=== PATIENT | male | born 1970 | race African-American/Black ===

== ENCOUNTER 2016-07-25 11:55 | Emergency (ER) | payer MEDICAID, OTHER ==
--- NOTE | 2016-07-25 12:35 | EDPHY ---
H & P Smoking Status: Current every day smoker Time Seen by Provider: 07/25/16 12:34 HPI/ROS: CHIEF COMPLAINT: A lot of people are out to get me HISTORY OF PRESENT ILLNESS: This 46-year-old man with schizoaffective disorder also has a history of substance abuse and has been off his medications for the last 2 months which have included in the past Abilify, Wellbutrin, Adderall, and Xanax. He moved [place] from [place] and has not been able low couple local [facility] facility. He tells me has been increasingly paranoid feeling that a lot of people are out to get him and he feels on guard and has been caring various weapons including a knife in a hammer to protect himself. Apparently tells me that he pled guilty today in court caring a weapon in public. REVIEW OF SYSTEMS: Eye: no change in vision ENT: no sore throat Cardiac: no chest pain or syncope Pulmonary: no cough or SOB Abdomen: no vomiting, diarrhea, abdominal pain Musculoskeletal: no back pain Skin: no rash Neuro: no headache Constitutional: no fever : no urinary symptoms A comprehensive 10 point review of systems is otherwise negative aside from elements mentioned in the history of present illness. PAST MEDICAL HISTORY: Schizoaffective disorder, hypertension, asthma. Social history: Patient admits to multi drug abuse including methamphetamine yesterday 11:00 p.m.. Tobacco smoker. Denies alcohol. General Appearance: Alert and conversant, cooperative. Distracted. Eyes: No scleral icterus. ENT, Mouth: Normal mucous membranes. Respiratory: Normal respiratory effort, breath sounds equal, lungs are clear to auscultation. Cardiovascular: Regular rate and rhythm. Gastrointestinal: Abdomen is soft and non tender. Neurological: Alert and oriented x3. Normally conversant. Face symmetric, normal movement and sensation in all extremities. Skin: Warm and dry, no rashes. Musculoskeletal: No peripheral edema and no joint swelling. Psychiatric: Patient is mildly agitated. He appears distracted. He has rambling speech and seems to be unable to sit still. Emergency Department course/MDM: Screening labs are sent to include alcohol level and drug screen. Ativan 1 mg orally for increasing agitation. Mental health evaluation for increasing paranoia with a history of schizoaffective disorder. Signed out to Dr. Jung at 9:00 p.m., mental health evaluation pending. (Sean Carr) Constitutional: Initial Vital Signs Temperature (C) 36.4 C 07/25/16 11:58 Heart Rate 87 07/25/16 11:58 Respiratory Rate 18 07/25/16 11:58 Blood Pressure 155/109 H 07/25/16 11:58 O2 Sat (%) 95 07/25/16 11:58 O2 Delivery Mode Room Air Allergies/Adverse Reactions: lactose Allergy (Verified 07/25/16 11:56) Home Medications: Medication Instructions Recorded ALPRAZolam [Xanax 1 MG (*)] 1 mg PO TID 05/18/16 ARIPiprazole [Abilify 10 mg (*)] 10 mg PO DAILY 05/18/16 Bupropion HCl [Wellbutrin Xl] 300 mg PO DAILY 05/18/16 Dextroamphetamine/Amphetamine 30 mg PO BID 05/18/16 [Adderall 30 mg Tablet] Gabapentin [Neurontin 300 MG (*)] 300 mg PO TID 05/18/16 Lisinopril Dose Unk 05/18/16 amLODIPine BESYLATE [Norvasc 10 mg 10 mg PO DAILY 05/18/16 (*)] Medical Decision Making ED Course/Re-evaluation: 4:00 a.m.- I received sign-out on this patient from Dr. Jung at approximately 11:00 p.m. last night. He has been stable throughout my shift. EPS just evaluated him and he is no longer suicidal or homicidal in any way. The case has been discussed with the on-call psychiatrist and we plan to discharge the patient to home. He was recently in detox for methamphetamine use and can continue with this if he would like. He has been given resources. (Sapphire Rondon) Other Provider: I assumed care of the patient from Dr. Carr at 9:00 p.m. Patient presented with delusions and paranoia and was found to be positive for methamphetamine on his urine tox. He will be evaluated by mental health at 1:00 a.m., 12 hours after his urine tox was positive for methamphetamine. Patient was resting comfortably during remainder of my shift. He was sleeping at 11 o'clock. He has not required any medications. He had several friends and support group from [facility] who visited him in the emergency department. He is no longer having active psychosis it is no longer paranoid He does have a history of schizoaffective disorder has been off of his medications. Patient will be evaluated by EPS at 1:00 a.m.; patient is currently here voluntarily. (Britney Jung) - Data Points Laboratory Results: Laboratory Results 07/25/16 13:10 07/25/16 13:10 07/25/16 16:00 Urine Opiates Screen NEGATIVE (NEGATIVE) Urine Barbiturates NEGATIVE (NEGATIVE) Ur Phencyclidine Scrn NEGATIVE (NEGATIVE) Ur Amphetamine Screen NON-NEGATIVE H (NEGATIVE) U Benzodiazepines Scrn NEGATIVE (NEGATIVE) Urine Cocaine Screen NEGATIVE (NEGATIVE) U Marijuana (THC) Screen NON-NEGATIVE H (NEGATIVE) Medications Given: Discontinued Medications Lorazepam (Ativan) 1 mg PO EDNOW ONE Stop: 07/25/16 12:51 Last Admin: 07/25/16 13:21 Dose: 1 mg Departure - Departure Disposition: Home, Routine, Self-Care Clinical Impression: Methamphetamine abuse, Paranoia Schizoaffective disorder Qualifiers: Schizoaffective disorder type: bipolar Qualifier Code: (F25.0) Schizoaffective disorder, bipolar type Condition: Good Instructions: Schizoaffective Disorder (ED) Referrals: [facility] [Outside] - As per Instructions
[2016-07-25] MEDS ORDERED: LORazepam 1 MG TAB PO ONE (12:50)
[2016-07-25 13:21] LABS: % IMMATURE GRANULYOCYTES 0.3 % (0.0-1.1); ABSOLUTE IMMATURE GRANULOCYTES 0.03 10^3/uL (0.00-0.10); ADD DIFF? NO; ADD MORPH? NO; ADD SCAN? NO; ATYPICAL LYMPHOCYTE FLAG 0 (0-99); FRAGMENT RBC FLAG 0 (0-99); HEMATOCRIT 42.9 % (40.0-51.0); HEMOGLOBIN 15.2 g/dL (13.7-17.5); LEFT SHIFT FLG 0 (0-99); LIPEMIA HEMOLYSIS FLAG 90 (0-99); MEAN CELL HEMOGLOBIN 32.6 pg (27.9-34.1); MEAN CELL HEMOGLOBIN CONCENTR. 35.4 g/dL (32.4-36.7); MEAN CELL VOLUME 92.1 fL (81.5-99.8); PLATELET CLUMPS FLAG 20 (0-99); PLATELET COUNT 298 10^3/uL (150-400); RED BLOOD CELL COUNT 4.66 10^6/uL (4.40-6.38); RED CELL DISTRIBUTION WIDTH 12.1 % (11.5-15.2)
[2016-07-25 13:33] LABS: ANION GAP 12 mEq/L (8-16); CALCIUM 9.5 mg/dL (8.5-10.4); CARBON DIOXIDE 24 mEq/l (22-31); CHLORIDE 103 mEq/L (97-110); CREATININE 1.3 mg/dL (0.7-1.3); ETHANOL SERUM < 10 mg/dL (0-10); GLOMERULAR FILTRATION RATE 59; GLUCOSE 84 mg/dL (70-100); POTASSIUM 3.8 mEq/L (3.5-5.2); SODIUM 139 mEq/L (134-144)
[2016-07-25 21:40] VITALS: RESP 16
[2016-07-26 05:15] VITALS: BP 164/87; PULSE 84; TEMP 97.9; O2SAT 97
== END 2016-07-26 05:25 | disposition home or self-care (01) ==
DX: F25.0 Schizoaffective disorder, bipolar type (principal); F15.10 Other stimulant abuse, uncomplicated; F22 Delusional disorders; I10 Essential (primary) hypertension; J45.909 Unspecified asthma, uncomplicated; F17.200 Nicotine dependence, unspecified, uncomplicated
CPT/HCPCS: 80305; G0480

== ENCOUNTER 2017-01-04 19:47 | Emergency (ER) | payer MEDICAID, OTHER ==
--- NOTE | 2017-01-04 20:31 | EDPHY ---
H & P Stated Complaint: OUT OF RISPERDAL Source: Patient Exam Limitations: No limitations - Personal History Current Tetanus/Diphtheria Vaccine: Unsure - Medical/Surgical History Hx Asthma: Yes Hx Chronic Respiratory Disease: No Hx Diabetes: No Hx Cardiac Disease: No Hx Renal Disease: No Hx Cirrhosis: No Hx Alcoholism: No Hx HIV/AIDS: No Hx Splenectomy or Spleen Trauma: No Other PMH: HTN, SCHIZOAFFECTIVE DISORDER, ASTHMA, HEPATITIS (FOOD BORNE, IN REMISSION) - Social History Smoking Status: Current every day smoker HPI/ROS: CHIEF COMPLAINT: "I'm not really sure" HISTORY OF PRESENT ILLNESS: Patient has difficulty focusing and providing adequate history. He says That he "is not really sure why I'm here. I guess I need some help." he says that he has is diagnosis of bipolar disorder and previous diagnoses of psychosis. He does not know the of the formal diagnosis. He says he has been placed on Risperdal at [facility] within the past 2 weeks. He was taking this for short period of time, but he is not sure with the rest of his pills are now. He says that he has being chased and threatened by individuals. He is not entirely sure there there or not. He says that he is here because he needs help, but he also says that he does not entirely know what he meant by that. He says that he is afraid that he does not have any wants to see an that if we discharge him home that he would harm someone. He says he has a knife and scissors on him and that he would have to hurt someone to get help. He denies suicidal ideation but does admit to the intent to harm someone in order to get himself PSYCHIATRIC DIAGNOSES: bipolar disorder, psychosis, anti-social disorder PRIOR PSYCHIATRIC EVALUATIONS: uncertain M1/DETAINER: Detainer at 8:30 p.m. REVIEW OF SYSTEMS: Ten systems reviewed and are negative unless otherwise noted in the HPI EXAMINATION General Appearance: Alert, no distress Head: normocephalic, atraumatic Eyes: Pupils equal and round, no conjunctival pallor or injection ENT, Mouth: Mucous membranes moist Neck: Normal inspection, supple, non-tender Respiratory: Lungs are clear to auscultation Cardiovascular: Regular rate and rhythm. No murmur. Pulses intact distally. Gastrointestinal: Abdomen is soft and nontender Back: non-tender, no bony abnormalities Neurological: A&O, nonfocal, normal gait Skin: Warm and dry, no rash Extremities: Nontender, no pedal edema Psychiatric: Flat affect. Homicidal ideation with intent to harm someone with scissors or knife. Delusional DIFFERENTIAL DIAGNOSES: Including but not limited to delusional, schizophrenic, bipolar, homicidal suicidal ideation, acute psychosis MDM: 8:30 p.m. Patient is exhibiting homicidal ideations. He is exhibiting that he is frustrated due to the lack of care he feels he is receiving for his mental health diagnoses. He says that he has a knife incision along him that if he is discharged "he is not sure what he would. I'm not sure what I'd do, and I would have to hurt someone to get some help." I have filled out a detained or. We will proceed with medical clearance and psychiatric evaluation. 9:44 p.m. Laboratory studies are unremarkable. At this point he is medically cleared for evaluation. 12:00 a.m. I discussed the case with the mental health worker, Josesito. He does feel that the patient warrants inpatient care. However, he says that the attending psychiatric physician would like the patient to be re-evaluated in the morning due to his methamphetamine use and abuse. This is despite a negative screen for methamphetamine at this time. The mental health worker will place the patient on an M1 hold this time. He will be kept in the department for re- evaluation in the morning. 11:20 a.m., January 05, 2017 I saw this patient last night and checked the patient over to Dr. Rondon. This morning he has been evaluated by EPS. I spoke with Justyna. She says that she and her on-call psychiatrist or recommended that the hold be lifted the patient be discharged home. The patient has denied any intent to the statements he made last night. He says that he actually made them in order to secure place to sleep, food into charges supple. He had no intention of harming himself or anyone else. Apparently he did not actually have any weapons on him. The patient has been evaluated by Psychiatry and per their recommendation , they are asking that I lift or vacated the M1 hold that he be discharged home to follow up outpatient. Patient is agreeable to this plan as well. Discharged home in stable condition SUPERVISION: Patient was evaluated in conjunction with the supervising physician. Please see their note for details. (Addison Dorantes) Constitutional: Initial Vital Signs Temperature (C) 98.2 F 01/04/17 20:11 Heart Rate 85 01/04/17 20:11 Respiratory Rate 20 01/04/17 20:11 Blood Pressure 121/96 H 01/04/17 20:11 O2 Sat (%) 95 01/04/17 20:11 O2 Delivery Mode Room Air Allergies/Adverse Reactions: lactose Allergy (Verified 07/25/16 11:56) olanzapine [From Zyprexa] Allergy (Verified 01/04/17 20:09) Home Medications: Medication Instructions Recorded ALPRAZolam [Xanax 1 MG (*)] 1 mg PO TID 05/18/16 Gabapentin [Neurontin 300 MG (*)] 300 mg PO TID 05/18/16 Lisinopril Dose Unk 05/18/16 amLODIPine BESYLATE [Norvasc 10 mg 10 mg PO DAILY 05/18/16 (*)] Medical Decision Making ED Course/Re-evaluation: 6:27am- The patient has remained stable throughout my shift. He is currently awaiting re-evaluation by the mental health team. At 7:00 a.m., the case will be signed out to the oncoming Dr Whiteside. (Sapphire Rondon) [id number] care assumed by me from Dr. Rondon pending mental health re-evaluation. ( Romario Whiteside) Other Provider: PHYSICIAN DOCUMENTATION: The patient was evaluated and managed by the Physician Orthotics Assistant. My co- signature indicates that I have reviewed this chart and I agree with the findings and plan of care as documented. I am the secondary supervising physician. (Sapphire Rondon) - Data Points Laboratory Results: Laboratory Results 01/04/17 20:35 01/04/17 20:35 Departure - Departure Disposition: Home, Routine, Self-Care Clinical Impression: Bipolar 1 disorder, Homeless Schizoaffective disorder Qualifiers: Schizoaffective disorder type: bipolar Qualified Code(s): F25.0 - Schizoaffective disorder, bipolar type Condition: Good Instructions: Bipolar Disorder (ED) Additional Instructions: Follow up with mental health resources as discussed with EPS regulatory and compliance technician. Return to the emergency department for any homicidal or suicidal ideation. Follow up with primary care physician for remainder of care Referrals: Kiesha Velasco MD [Primary Care Provider] - As per Instructions Giovani Taylor MD [Medical Doctor] - As per Instructions
[2017-01-04 20:47] LABS: % IMMATURE GRANULYOCYTES 0.3 % (0.0-1.1); ABSOLUTE IMMATURE GRANULOCYTES 0.02 10^3/uL (0.00-0.10); ADD DIFF? NO; ADD MORPH? NO; ADD SCAN? NO; ATYPICAL LYMPHOCYTE FLAG 10 (0-99); FRAGMENT RBC FLAG 0 (0-99); HEMATOCRIT 43.4 % (40.0-51.0); LEFT SHIFT FLG 0 (0-99); LIPEMIA HEMOLYSIS FLAG 90 (0-99); MEAN CELL HEMOGLOBIN 32.8 pg (27.9-34.1); MEAN CELL HEMOGLOBIN CONCENTR. 34.6 g/dL (32.4-36.7); MEAN PLATELET VOLUME 10.4 fL (8.7-11.7); PLATELET CLUMPS FLAG 0 (0-99); PLATELET COUNT 286 10^3/uL (150-400); RED BLOOD CELL COUNT 4.57 10^6/uL (4.40-6.38); RED CELL DISTRIBUTION WIDTH 12.5 % (11.5-15.2)
[2017-01-04 20:56] LABS: ANION GAP 10 mEq/L (8-16); CALCIUM 9.8 mg/dL (8.5-10.4); CARBON DIOXIDE 23 mEq/l (22-31); CHLORIDE 104 mEq/L (97-110); CREATININE 1.2 mg/dL (0.7-1.3); ETHANOL SERUM < 10 mg/dL (0-10); GLOMERULAR FILTRATION RATE > 60; GLUCOSE 96 mg/dL (70-100); POTASSIUM 5.2 mEq/L (3.5-5.2); SALICYLATE < 1.0 mg/dL (2.0-20.0); SODIUM 137 mEq/L (134-144)
[2017-01-05 06:28] VITALS: RESP 18; TEMP 97.5; O2SAT 96
[2017-01-05 08:05] VITALS: BP 128/75; PULSE 80
== END 2017-01-05 11:31 | disposition home or self-care (01) ==
DX: F25.0 Schizoaffective disorder, bipolar type (principal); J45.909 Unspecified asthma, uncomplicated; I10 Essential (primary) hypertension; F17.200 Nicotine dependence, unspecified, uncomplicated; Z59.0 Homelessness
CPT/HCPCS: 80305; G0480

== ENCOUNTER 2017-01-08 21:47 | Emergency (ER) | payer MEDICAID ==
[2017-01-08 21:53] VITALS: BP 137/90; PULSE 92; RESP 14; TEMP 98.2; O2SAT 97
--- NOTE | 2017-01-08 22:23 | EDPHY ---
H & P Time Seen by Provider: 01/08/17 21:57 HPI/ROS: CHIEF COMPLAINT: Rash, medication refill request HISTORY OF PRESENT ILLNESS: 46-year-old male history of schizoaffective disorder in the ER with 2 complaints. 1st and primary complaint is 1 week of in mildly pruritic rash to his right lateral elbow. Atraumatic. History of cutaneous MRSA. No tenderness to this area. No intraoral lesions. No genitalia lesions. No GI complaints. No ocular complaints. 2nd complaint is refill of his lisinopril/hydrochlorothiazide 04/24.5. Ran out 2 days ago and moving to [place] in 2 days. Denies headache. Denies chest pain. Denies dyspnea. Denies back or flank pain. Denies urinary abnormality. He denies: Suicidal ideation, homicidal ideation, hallucination PRIMARY CARE PROVIDER: none REVIEW OF SYSTEMS: A ten point review of systems was performed and is negative with the exception of the items mentioned in the HPI PAST MEDICAL & SURGICAL HISTORY: Schizoaffective disorder. Hypertension. SOCIAL HISTORY: nonsmoker no alcohol or drug use PHYSICAL EXAM (Prior to examination, patient consented to physical exam, hands were washed and my usual and customary physical exam procedures followed) 1) GENERAL: Well-developed, well-nourished, alert and oriented. Appears to be in no acute distress. 2) HEAD: Normocephalic, atraumatic 3) HEENT: Pupils equal, round, reactive to light bilaterally. No injection . 4) NECK: Full range of motion, no meningeal signs. 5) LUNGS: Clear auscultation bilaterally, no wheezes, no rhonchi, no retractions. 6) HEART: Regular rate and rhythm, no murmur, no heave, no gallop. 7) ABDOMEN: No guarding, no rebound, no focal tenderness, 8) MUSCULOSKELETAL: Moving all extremities, no focal areas of tenderness, no obvious trauma. No peripheral edema or discoloration. 9) BACK: No CVA tenderness 10) SKIN: right upper extremity: There is a 6 cm x 4 cm area of excoriated tissue which is nontender, vesicular, is not consistent with zoster, does not followed dermatomal distribution, no lymphangitic streaking. 11) Psychiatric: Patient is oriented X 3, there is no agitation. DIFFERENTIAL DIAGNOSIS: [ in no particular order including but not limited contact dermatitis, cellulitis, zoster Smoking Status: Current every day smoker Constitutional: Initial Vital Signs Temperature (C) 36.8 C 01/08/17 21:49 Heart Rate 92 01/08/17 21:49 Respiratory Rate 14 01/08/17 21:49 Blood Pressure 137/90 H 01/08/17 21:49 O2 Sat (%) 97 01/08/17 21:49 O2 Delivery Mode Room Air Allergies/Adverse Reactions: lactose Allergy (Verified 07/25/16 11:56) olanzapine [From Zyprexa] Allergy (Verified 01/04/17 20:09) Home Medications: Medication Instructions Recorded Hydrocortisone 1% [Hydrocortisone 1 brett TP DAILY #15 g 01/08/17 1% cream (*)] Lisinopril/Hydrochlorothiazide 1 each PO DAILY #30 tablet 01/08/17 [Lisinopril-Hctz 10-12.5 mg Tab] MDM/Departure - MDM ED Course/Re-evaluation: Regarding the patient's rash, doubt Knapp-Mohan, doubt zoster, doubt cellulitis, doubt infectious etiology. Discussed possibility of contact dermatitis. I am prescribing him topical hydrocortisone. He will be given a refill for his lisinopril/hydrochlorothiazide. Recommend he establish medical care in [place] when he moves there in 3 days. - Depart Disposition: Home, Routine, Self-Care Clinical Impression: rash to right arm, Medication refill Condition: Good Instructions: Acute Rash (ED) Prescriptions: Hydrocortisone 1% [Hydrocortisone 1% cream (*)] 1 brett TP DAILY #15 g Lisinopril/Hydrochlorothiazide [Lisinopril-Hctz 10-12.5 mg Tab] 1 each PO DAILY #30 tablet Referrals: Kiesha Velasco MD [Primary Care Provider] - 1-2 days without fail
== END 2017-01-08 22:28 | disposition home or self-care (01) ==
DX: R21 Rash and other nonspecific skin eruption (principal); F17.200 Nicotine dependence, unspecified, uncomplicated; I10 Essential (primary) hypertension; Z76.0 Encounter for issue of repeat prescription